=== PATIENT | female | born 1990 | race Caucasian/White ===

== ENCOUNTER 2024-09-12 01:17 | Inpatient (IN) | payer OTHER ==
[2024-09-12 01:30] VITALS: BMI 24.6
[2024-09-12] MEDS ORDERED: MAG HYDROX/AL HYDROX/SIMETH 30 ML UNIT-DOSE CUP PO PRN (02:47)
[2024-09-12] MEDS ORDERED: BISMUTH SUBSALICYLATE 524 MG/30 ML PO PRN (02:47)
[2024-09-12] MEDS ORDERED: DICYCLOMINE HCL 10 MG CAPSULE PO PRN (02:47)
[2024-09-12] MEDS ORDERED: NALOXONE (NARCAN) HCL 4 MG/0.1 ML SPRAY NS PRN (02:47)
[2024-09-12] MEDS ORDERED: BENZONATATE 200 MG CAPSULE PO PRN (02:47)
[2024-09-12] MEDS ORDERED: BENZOCAINE/MENTHOL (CHLORASEPTIC ) LOZENGE MM PRN (02:47)
[2024-09-12] MEDS ORDERED: POLYETHYLENE GLYCOL (HEALTHYLAX) 3350 17 GM PACKET PO PRN (02:47)
[2024-09-12] MEDS ORDERED: MAGNESIUM HYDROX 2400MG/30ML ORAL SUSPENSION 30 ML CUP PO PRN (02:47)
[2024-09-12] MEDS ORDERED: ONDANSETRON *ODT* 4 MG TABLET SL PRN (02:47)
[2024-09-12] MEDS ORDERED: ACETAMINOPHEN 325 MG TABLET (FP) PO PRN (02:47)
[2024-09-12] MEDS ORDERED: NICOTINE POLACRILEX 2 MG GUM BUC PRN (02:47)
[2024-09-12] MEDS ORDERED: guaiFENesin 600 MG TABLET.ER (FP) PO PRN (02:47)
[2024-09-12] MEDS ORDERED: hydrOXYzine PAMOATE 25 MG CAPSULE (FP) PO PRN (02:47)
[2024-09-12] MEDS ORDERED: LOPERAMIDE HCL 2 MG CAPSULE PO PRN (02:47)
[2024-09-12] MEDS ORDERED: chlordiazePOXIDE HCL 25 MG CAPSULE PO PRN (03:26)
[2024-09-12] MEDS: chlordiazePOXIDE HCL 25 MG CAPSULE PO SCH (05:55)
[2024-09-12] MEDS: PRENATAL VITAMINS W/ FOLIC ACID TABLET (FP) PO SCH (10:09)
[2024-09-12] MEDS: NICOTINE 14 MG/24 HOURS TOPICAL PATCH TD SCH (10:10)
[2024-09-12] MEDS: IBUPROFEN 400 MG TABLET (FP) PO PRN (17:43)
[2024-09-12] MEDS: THIAMINE 100 MG TABLET PO SCH (22:13)
[2024-09-12] MEDS: MELATONIN 5 MG TABLETS PO SCH (22:13)
[2024-09-12] MEDS: METHOCARBAMOL 500 MG TABLET PO PRN (22:13)
[2024-09-13] MEDS: chlordiazePOXIDE HCL 25 MG CAPSULE PO SCH (05:58)
[2024-09-13 12:11] LABS: POTASSIUM 3.8 mmol/L (3.5-5.1)
[2024-09-13 12:13] LABS: HEMATOCRIT 35.6 % (34.1-44.9); HEMOGLOBIN 11.3 g/dL (11.2-15.7); MCHC 31.7 g/dl (32.2-35.5); MEAN CELL VOLUME 94.7 fl (79.4-94.8); MEAN PLT VOLUME 9.9 fl (9.4-12.3); PLATELET COUNT 221 x10^3/uL (182-369); RDW 13.4 % (12.1-16.8)
[2024-09-13 12:15] LABS: CALCIUM 8.1 mg/dL (8.5-10.1)
[2024-09-13 12:16] LABS: ALBUMIN 3.2 g/dl (3.4-5.0); BLOOD UREA NITROGEN 17.5 mg/dL (7-18)
[2024-09-13 12:19] LABS: CREATININE 0.8 mg/dL (0.55-1.3)
[2024-09-13] MEDS: ONDANSETRON *ODT* 4 MG TABLET SL ONE (13:42)
[2024-09-14] MEDS ORDERED: chlordiazePOXIDE HCL 10 MG CAPSULE PO PRN
[2024-09-14] MEDS: chlordiazePOXIDE HCL 10 MG CAPSULE PO SCH (05:50)
[2024-09-14 09:40] VITALS: BP 105/65; PULSE 64; RESP 18; TEMP 97.9
[2024-09-14] MEDS: IBUPROFEN 600 MG TABLET (FP) PO PRN (10:20)
[2024-09-15] MEDS ORDERED: chlordiazePOXIDE HCL 10 MG CAPSULE PO SCH (05:00)
[2024-09-16] MEDS ORDERED: chlordiazePOXIDE HCL 10 MG CAPSULE PO ONE (05:00)
== END 2024-09-14 14:30 | disposition home or self-care (01) | DRG 774 ==
LOC: YASAS 01:17 → Y6N 03:59
PROVIDERS: ADMIT Allergy & Immunology; ATTEND Allergy & Immunology
PROC: HZ2ZZZZ Detoxification Services for Substance Abuse Treatment (ICD-10-PCS; principal; 2024-09-12)
DX: F10.230 Alcohol dependence with withdrawal, uncomplicated (principal); F14.20 Cocaine dependence, uncomplicated; F12.20 Cannabis dependence, uncomplicated; F17.290 Nicotine dependence, other tobacco product, uncomplicated; F19.24 Other psychoactive substance dependence with psychoactive substance-induced mood disorder; G47.00 Insomnia, unspecified; M41.9 Scoliosis, unspecified; M54.50 Low back pain, unspecified; G89.29 Other chronic pain
CPT/HCPCS: 36415; 80053; 80305; 80307; 81025; 85027; 86780; 93005; 93010; Q0162